=== PATIENT | male | born 1940 | race Caucasian/White ===

== ENCOUNTER 2016-08-20 07:13 | Day surgery (SDC) | payer OTHER, BC, MEDICARE ==
[2016-08-17 14:38] VITALS: BMI 23.7
[2016-08-20] MEDS ORDERED: LEVOFLOXACIN 500 MG PREMIX BAG IVPB ONE (08:25)
--- NOTE | 2016-08-20 08:58 | OP ---
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
[2016-08-20] MEDS ORDERED: ONDANSETRON 4 MG/2 ML VIAL IVPUSH PRN (09:01)
[2016-08-20] MEDS ORDERED: PROMETHAZINE HCL 25 MG/1 ML VIAL IVPUSH PRN (09:01)
[2016-08-20] MEDS ORDERED: oxyCODONE HCL 5 MG TABLET PO PRN (09:01)
[2016-08-20 09:21] VITALS: TEMP 97.4
[2016-08-20 09:49] VITALS: BP 144/84
[2016-08-20 10:35] VITALS: PULSE 71
--- NOTE | 2016-08-20 13:29 | EKG ---
Test Reason : Blood Pressure : / mmHG Vent. Rate : 068 BPM Atrial Rate : 068 BPM P-R Int : 174 ms QRS Dur : 126 ms QT Int : 422 ms P-R-T Axes : 041 -52 057 degrees QTc Int : 448 ms NORMAL SINUS RHYTHM LEFT VENTRICULAR HYPERTROPHY WITH QRS WIDENING ABNORMAL ECG NO PREVIOUS ECGS AVAILABLE Confirmed by MELISSA SAUCEDA, SHANA ([id number]) on 08/20/2016 1:29:19 PM Referred By: JADA WYMAN Confirmed By:SHANA TORRES MD
--- NOTE | 2016-08-20 18:26 | OP ---
DATE OF OPERATION: 08/20/2016 PREOPERATIVE DIAGNOSIS: Prostate cancer, benign prostatic hypertrophy, left hydronephrosis secondary to left ureteral strictures. POSTOPERATIVE DIAGNOSIS: Prostate cancer, benign prostatic hypertrophy, left hydronephrosis secondary to left ureteral strictures. PROCEDURE: Cystoscopy, left retrograde pyelogram, left ureteroscopy, and left ureteral stent exchange. ATTENDING SURGEON: Jada Ferreira M.D. ANESTHESIA: General. DESCRIPTION OF PROCEDURE: The patient is a very pleasant 75-year-old gentleman with a history of prostate cancer and benign prostatic hypertrophy status post transurethral resection of the prostate. The patient has a history of a gastrointestinal malignancy and secondary to chemotherapy and radiation developed multiple high-grade left ureteral strictures. The patient has been maintained with a left ureteral stent. The patient is brought to the operating room today to change the left ureteral stent. The patient was brought in the operating room, placed in the supine position on the operating room table. General anesthesia is administered without any complications. Levaquin is given intravenously preoperatively. The patient is placed in the dorsal lithotomy position, prepped and draped in the usual sterile manner. Cystoscopy is performed and the left ureteral stent is identified. The left ureteral stent is brought out to the urethral meatus. At this point attempts to intubate the left ureteral stent from the distal end were unsuccessful due to obstruction. This stent had to be removed. At this point, attempts at passing the wire by the cystoscope were unsuccessful due to angulation in the ureteral stricture disease. Ureteroscopy was performed. A difficult ureteroscopy was performed in order to enter the left distal ureteral orifice. Once the orifice was intubated there were multiple angulations and strictures that were present. A retrograde pyelogram showed a high-grade hydroureteronephrosis with ureteral stricture disease. At this point under direct visualization the wire was passed proximally into the left collecting system. At this point the ureteroscope was removed, utilizing the wire and fluoroscopy a 6 Tam[place] 24-cm stent was placed utilizing the Seldinger technique over the recently placed wire. Once it was in position, the wire was moved. Fluoroscopy showed excellent position of the left ureteral stent. No complications were noted. The patient tolerated the procedure very well. The disposition of the patient was to recovery room. JADA WYMAN M.D. [id number]
--- NOTE | 2016-08-21 08:27 | PATH ---
Surgical Pathology Report Patient Name: CYNDY WU Med. Rec. #: [id number] /Age/Gender: 1940 (Age: 75) / M Account: [id number] Location: [facility] Taken: 08/20/2016 Received: 08/20/2016 Reported: 08/21/2016 Physicians: Meet Ferreira Specimen(s) Received REMOVED STENT Clinical History Left ureteral stricture with obstruction Final Diagnosis STENT, LEFT URETER, REMOVAL: STENT (GROSS EXAM). Electronically Signed Adria Martínez M.D. Gross Description Received fresh labeled "removed stent" is a 38.5 cm in length yellow coiled portion of tubing, consistent with a ureteral stent. No soft tissue is present. No sections are submitted, gross only. /08/20/201608/20/2016
== END 2016-08-20 11:00 | disposition home or self-care (01) ==
LOC: JASU-SURG 07:13
PROVIDERS: ATTEND Urology
PROC: BT1FZZZ Fluoroscopy of Left Kidney, Ureter and Bladder (ICD-10-PCS; 2016-08-20)
PROC: 0T778DZ Dilation of Left Ureter with Intraluminal Device, Via Natural or Artificial Opening Endoscopic (ICD-10-PCS; principal; 2016-08-20 08:00)
PROC: 0T29X0Z Change Drainage Device in Ureter, External Approach (ICD-10-PCS; 2016-08-20 08:00)
DX: N13.1 Hydronephrosis with ureteral stricture, not elsewhere classified (principal); C61 Malignant neoplasm of prostate; N40.0 Benign prostatic hyperplasia without lower urinary tract symptoms
CPT/HCPCS: 76000-TC; 88300-TC; 93005; 93010; 94760

== ENCOUNTER 2017-02-25 08:09 | Day surgery (SDC) | payer OTHER, MEDICARE ==
[2017-02-14 12:45] VITALS: BMI 23.7
[2017-02-25] MEDS ORDERED: LIDOCAINE HCL/PF 2% SDV 5ML VIAL ONE ×2 (12:25→12:54)
[2017-02-25] MEDS ORDERED: PROPOFOL 20 ML ONE (12:25)
[2017-02-25] MEDS ORDERED: LEVOFLOXACIN 500 MG PREMIX BAG IVPB ONE (12:45)
[2017-02-25] MEDS ORDERED: ONDANSETRON 4 MG/2 ML VIAL IVPUSH PRN (13:19)
[2017-02-25] MEDS ORDERED: oxyCODONE HCL 5 MG TABLET PO PRN (13:19)
--- NOTE | 2017-02-25 13:24 | OP ---
Operative Note - Note: Operative Date: 02/25/17 Pre-Operative Diagnosis: left ureteral stricture with high grade hydronephrosis/ bph/prostate cancer Operation: cystoscopy/left retrograde pyelogram/left ureteroscopy/left ureteral stent exchange Findings: high left hydroureteronephrosis secondary to ureteral stricture Post-Operative Diagnosis: Same as Pre-op Surgeon: Meet Ferreira Anesthesia: General Drains & Tubes with Location: 6 fr/24 cm left ureteral stent Operative Report Dictated: Yes
[2017-02-25] MEDS ORDERED: LACTATED RINGERS SOLUTION 1,000 ML IV SCH (13:30)
[2017-02-25 14:31] VITALS: TEMP 97.3
[2017-02-25 15:08] VITALS: BP 132/86; PULSE 56
--- NOTE | 2017-02-26 09:47 | PATH ---
Surgical Pathology Report Patient Name: CYNDY WU [facility]. Rec. #: [id number] /Age/Gender: 1940 (Age: 76) / M Account: [id number] Location: [facility] Taken: 02/25/2017 Received: 02/25/2017 Reported: 02/26/2017 Physicians: Meet Ferreira Specimen(s) Received OLD LEFT URETERAL STENT Clinical History Left ureteral stricture Final Diagnosis URETERAL STENT, LEFT, REMOVAL: URETERAL STENT. MACROSCOPIC DIAGNOSIS. Electronically Signed Mayra Helton M.D. Gross Description Received fresh labeled "left ureteral stent," is a 35 cm in length blue-green, coiled portion of tubing, consistent with a ureteral stent. No soft tissue is present. No sections are submitted, gross only. 02/25/201702/25/2017
== END 2017-02-25 15:30 | disposition home or self-care (01) ==
LOC: JASU-SURG 08:09
PROVIDERS: ATTEND Urology
PROC: 0T9780Z Drainage of Left Ureter with Drainage Device, Via Natural or Artificial Opening Endoscopic (ICD-10-PCS; 2017-02-25)
PROC: 0T9780Z Drainage of Left Ureter with Drainage Device, Via Natural or Artificial Opening Endoscopic (ICD-10-PCS; principal; 2017-02-25 08:00)
PROC: BT1FYZZ Fluoroscopy of Left Kidney, Ureter and Bladder using Other Contrast (ICD-10-PCS; 2017-02-25 08:00)
DX: N13.1 Hydronephrosis with ureteral stricture, not elsewhere classified (principal); C61 Malignant neoplasm of prostate
CPT/HCPCS: 76000-TC; 88300-TC; 94760

== ENCOUNTER 2018-01-13 12:32 | Day surgery (SDC) | payer OTHER, MEDICARE ==
[2018-01-13 13:50] VITALS: BMI 20.7
[2018-01-13] MEDS ORDERED: IOHEXOL 180 MG/1 ML ML IJ ONE (15:30)
[2018-01-13] MEDS ORDERED: oxyCODONE HCL 5 MG TABLET PO PRN (15:57)
[2018-01-13] MEDS ORDERED: ONDANSETRON 4 MG/2 ML VIAL IVPUSH PRN (15:57)
[2018-01-13] MEDS ORDERED: ACETAMINOPHEN 325 MG TABLET (FP) PO PRN (15:57)
[2018-01-13] MEDS ORDERED: LACTATED RINGERS SOLUTION 1,000 ML IV SCH (16:00)
--- NOTE | 2018-01-13 16:06 | OP ---
Operative Note - Note: Operative Date: 01/13/18 Pre-Operative Diagnosis: left ureteral stricture with hydronephrosis/prostate cancer Operation: cystoscopy/left retrograde pyelogram/left ureteroscopy/left stent exchange Findings: angulated (J Hooking) left ureter at UVJ with proximal ureteral stricture and grade 5/5hydronephrosis Post-Operative Diagnosis: Same as Pre-op Surgeon: Meet Ferreira Anesthesia: General Specimens Removed: 10/06 left ureteral stent Drains & Tubes with Location: 10/06 left ureteral stent
[2018-01-13 16:11] VITALS: TEMP 97.9
[2018-01-13 17:48] VITALS: BP 138/84; PULSE 84
--- NOTE | 2018-01-13 20:40 | OP ---
DATE OF OPERATION: 01/13/2018 PREOPERATIVE DIAGNOSIS: Left urethral stricture with hydronephrosis and prostate cancer. POSTOPERATIVE DIAGNOSIS: Left urethral stricture with hydronephrosis and prostate cancer. PROCEDURE: Cystoscopy and left retrograde pyelogram, left ureteroscopy with left ureteral stent exchange. ATTENDING: Meet Briggs MD ANESTHESIA: General. DESCRIPTION OF PROCEDURE: The patient was brought in the operating room and placed in the supine position on the operating room table. Anesthesia and preoperative antibiotics were administered. The patient was then placed in a dorsal lithotomy position and prepped and draped in the usual sterile manner. Cystoscopy was performed, and the left ureteral stent was noted. There was 2+ to 3+ bladder trabeculation with diverticula noted. There was no evidence of stones or neoplasm within the bladder. The patient had the stent in for 1 year, and it was decided that it would be best to place the wire alongside the catheter in order to avoid loss of access. The presumption was that the ureteral stent would be occluded; therefore, a wire would not be passed through the stent. A wire would be attempted to be passed proximally with the stent in place; however, there was inability to pass the wire proximally. Ureteroscopy was then utilized, and the ureteroscope was placed at the distal ureter. The ureteral orifice was intubated, and the ureteroscope was angulated laterally in order to allow passage of the wire into the proximal ureter. This J hooking or angulation of the ureter on entry into the bladder is a result of significant benign prostatic hypertrophy. The wire passed up the mid ureter; however, obstruction was noted. Ureteroscopy was then taken proximally, and a retrograde pyelogram showed the urethral stricture and the grade 5/5 hydronephrosis. A wire was passed under ureteroscopic visualization into the renal pelvis. At this point, the stent was removed with the grasping forceps. A 6-Kyrgyz 24-cm stent was then placed utilizing the Seldinger technique. No complications were noted. DISPOSITION: Patient to recovery room. Marina [id number]
--- NOTE | 2018-01-15 18:03 | PATH ---
Surgical Pathology Report Patient Name: CYNDY WU Med. Rec. #: [id number] /Age/Gender: 1940 (Age: 77) / M Account: [id number] Location: [facility] Taken: 01/13/2018 Received: 01/13/2018 Reported: 01/15/2018 Physicians: Meet Ferreira Specimen(s) Received LEFT STENT Clinical History Hydronephrosis Malignant neoplasm of prostate Final Diagnosis STENT, LEFT, REMOVAL: CONSISTENT WITH URETERAL STENT. MACROSCOPIC DIAGNOSIS. Electronically Signed Mayra Helton M.D. Gross Description Received fresh labeled "left stent" is a green stent consistent with ureteral stent which measures 35 cm in length and 0.1 cm lumen. No soft tissue identified, for gross only. MLSZ/01/14/2018 [facility]/01/14/2018
== END 2018-01-13 17:30 | disposition home or self-care (01) ==
LOC: JASU-SURG 12:32
PROVIDERS: ATTEND Urology
PROC: BT1FYZZ Fluoroscopy of Left Kidney, Ureter and Bladder using Other Contrast (ICD-10-PCS; 2018-01-13)
PROC: 0T9780Z Drainage of Left Ureter with Drainage Device, Via Natural or Artificial Opening Endoscopic (ICD-10-PCS; principal; 2018-01-13 10:00)
DX: N35.8 Other urethral stricture (principal); N13.30 Unspecified hydronephrosis; C61 Malignant neoplasm of prostate
CPT/HCPCS: 88300-TC; 94760

== ENCOUNTER → 2018-08-25 | Day surgery (SDC) | payer OTHER, BC, MEDICARE ==
[2018-08-08 15:14] VITALS: BMI 20.7
--- NOTE | 2018-09-30 17:33 | PATH ---
Surgical Pathology Report Patient Name: CYNDY WU [facility]. Rec. #: [id number] /Age/Gender: 1940 (Age: 77) / M Account: [id number] Location: [facility] Taken: 09/29/2018 Received: 09/29/2018 Reported: 09/30/2018 Physicians: Meet Ferreira Specimen(s) Received REMOVED STENT LEFT Clinical History Hydronephrosis Final Diagnosis STENT, LEFT, REMOVAL: CONSISTENT WITH URETERAL STENT. MACROSCOPIC DIAGNOSIS. Electronically Signed Mayra Helton M.D. Gross Description Received fresh labeled "removed stent left," is a 35 cm in length yellow-green, coiled portion of tubing, consistent with a ureteral stent. No soft tissue is present. No sections are submitted, gross only. /09/29/2018 [facility]09/29/2018
== END | disposition home or self-care (01) ==
LOC: JASU-SURG 07:36
PROVIDERS: ATTEND Urology
DX: Z53.8 Procedure and treatment not carried out for other reasons (principal)
CPT/HCPCS: 88300-TC

== ENCOUNTER 2018-09-29 06:57 | Day surgery (SDC) | payer OTHER, BC, MEDICARE | END 2018-09-29 12:45 | disposition home or self-care (01) | LOC: JASU-SURG 06:57 ==